=== PATIENT | female | born 1995 | race American Indian/Alaskan Native ===

== ENCOUNTER 2019-07-04 08:33 | Emergency (ER) | payer MEDICAID, OTHER ==
[2019-07-04 08:53] VITALS: BP 131/54
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
== END 2019-07-04 10:20 | disposition home or self-care (01) ==
LOC: ED 08:33
DX: S39.012A Strain of muscle, fascia and tendon of lower back, initial encounter (principal); S90.31XA Contusion of right foot, initial encounter; I10 Essential (primary) hypertension; V49.49XA Driver injured in collision with other motor vehicles in traffic accident, initial encounter; Y93.89 Activity, other specified; Y92.410 Unspecified street and highway as the place of occurrence of the external cause; Y99.8 Other external cause status

== ENCOUNTER → 2019-07-04 | Emergency (ER) | payer SELFPAY | LOC: ED 08:37 | DX: M54.9 Dorsalgia, unspecified (principal); Z53.21 Procedure and treatment not carried out due to patient leaving prior to being seen by health care provider ==

== ENCOUNTER 2020-11-25 13:07 | Observation (INO) | payer MEDICAID, OTHER ==
[~2020-11-25 13:07] MED LIST: LACTATED RINGERS 1,000 ML IV SCH
[2020-11-25] MEDS ORDERED: LACTATED RINGERS 1,000 ML IV SCH (13:45)
[2020-11-25] MEDS ORDERED: hydrALAZINE 20 MG/1 ML INJ IV PRN (13:45)
[2020-11-25 14:17] LABS: Hematocrit 36.8 % (30.3-42.9); Hemoglobin 12.2 gm/dl (10.1-14.3); Mean Corpuscular HGB Conc 33 % (30-34); Mean Corpuscular Volume 86 fl (79-97); Platelet Count 144 K/mm3 (140-440); Red Blood Count 4.26 M/mm3 (3.65-5.03); Red Cell Distribution Width 14.9 % (13.2-15.2)
[2020-11-25 14:21] LABS: Bilirubin,Urine NEG (Negative); Blood,Urine NEG (Negative); Color,Urine Yellow (Yellow); Urobilinogen,Urine < 2.0 mg/dL (<2.0)
--- NOTE | 2020-11-25 14:32 | History and Physical Report ---
History of Present Illness Date of examination: 11/25/20 Date of admission: 11/25/20 Chief complaint: pt was sent from clinic for PIH evaluation with severe proteinuria History of present illness: at 32.4wks by LMP c/w U/S. care with [facility] and sent by SONIA Browne for PIH evaluation. Pt admits to movement. Denies headache. Pt admits to intermittent RUQ abd pain and tingling sensation daily in her hands. pt has been taking her low dose aspirin with previous history of preeclampsia and term delivery at 37wks. Denies leakage of fluid, vaginal bleeding or feeling ctx. 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) Family/Genetic History: none Social history: no significant social history - Obstetrical History Expected Date of Delivery: 01/16/21 Actual Gestation: 32 Week(s) 4 Day(s) : 2 Para: 1 Number of Living Children: 1 Medications and Allergies Allergies Allergy/AdvReac Type Severity Reaction Status Date / Time No Known Allergies Allergy Verified 11/25/20 13:36 Home Medications Medication Instructions Recorded Confirmed Last Taken Type Ferrous Sulfate [Feosol 325 MG tab] 325 mg PO BID #60 tablet 08/23/15 Unknown Rx Ibuprofen [Motrin 600 MG tab] 600 mg PO Q6H #30 tablet 08/23/15 Unknown Rx Cyclobenzaprine [Flexeril 10 MG 10 mg PO TID PRN #15 tablet 07/04/19 Unknown Rx TAB] Naproxen [Naprosyn] 500 mg PO BID #20 tablet 07/04/19 Unknown Rx Active Meds: Active Medications Hydralazine HCl (Hydralazine 20 Mg/1 Ml Inj) 5 mg IV Q30MIN PRN PRN Reason: Hypertension Lactated Ringer's (Lactated Ringers) 1,000 mls @ 125 mls/hr IV DIRECT JO-ANN Lactated Ringer's (Lactated Ringers) 1,000 mls @ 50 mls/hr IV DIRECT JO-ANN Labetalol HCl (Labetalol 100 Mg Tab) 100 mg PO BID JO-ANN Review of Systems All systems: negative (intermittent RUQ pain to abdomen) - Vital Signs Vital signs: Vital Signs Pulse BP 83 135/84 11/25/20 13:28 11/25/20 13:28 Temp Pulse Resp BP Pulse Ox 100 H 145/82 99 11/25/20 14:22 11/25/20 14:13 11/25/20 14:22 - Physical Exam Breasts: Positive: deferred Cardiovascular: Regular rate Lungs: Positive: Normal air movement Abdomen: Positive: normal appearance Extremities: Positive: normal - Obstetrical FHR: category 1 (ocassional variables) Uterine Contraction Monitor Mode: External Results Result Diagrams: 11/25/20 13:55 All other labs normal. Assessment and Plan IUP at 32.4wks with PIH and BP normal at this time, thrombocytopenia noted on labs 1. Admit for PIH work up with 24hr prot, U/S for BPP, FER, EFW and placenta location 2. labetalol 100mg bid if BP>140's/90's 3. Steroids to be given 4. Consult [facility] 5. Hold aspirin for now until pt determined to be stable and not for delivery All questions encouraged and answered
[2020-11-25 14:36] LABS: Alanine Aminotransferase 10 units/L (7-56); Uric Acid 4.1 mg/dL (3.5-7.6)
[2020-11-25] MEDS ORDERED: ONDANSETRON 4 MG/2 ML INJ IV PRN (15:00)
[2020-11-25] MEDS ORDERED: SIMETHICONE 80 MG CHEW TAB PO PRN (15:00)
[2020-11-25] MEDS ORDERED: DOCUSATE SODIUM 100 MG CAP PO PRN (15:00)
--- NOTE | 2020-11-25 18:24 | Consultation ---
History of Present Illness Consult date: 11/25/20 Requesting physician: MANUEL ROY Reason for consult: pelvic pain History of present illness: HPI Ms. Hutchins is a 25 y/o now 32 4/7 weeks sent in from OB's office with elevated BP' Patient states she recently turned in 24 Hour urine prot at OB's last week and ?? "abnormal" - Please place in chart Denies COOPER's scotoma or ruq pain Mild swelling Has h/o preeclampsia with first preg on LDA BP's in house mildly elevated 141/82, 138/84 and 145/81 ( high per nurse at 160/72 - not on meds (antihypertensives) PIH labs WNL - Plts borderline at 144 ( <140 ) OB 2014 Induced vag for preeclampsia at 27 weeks m EFM - 140-150's occasional variables overall reassuring - no ctx US EFW 1886 grams - 24% BPP 8/8 FER at 14.9 cm No med No surgh Pos HSV NKA No C/D/D Past History Past Medical History: no pertinent history Past Surgical History: no surgical history [employer] History: other (Previous term preeclampsia vaginal delivery) Family/Genetic History: none - Obstetrical History : 2 Medications and Allergies Allergies Allergy/AdvReac Type Severity Reaction Status Date / Time No Known Allergies Allergy Verified 11/25/20 13:36 Home Medications Medication Instructions Recorded Confirmed Last Taken Type Ferrous Sulfate [Feosol 325 MG tab] 325 mg PO BID #60 tablet 08/23/15 Unknown Rx Ibuprofen [Motrin 600 MG tab] 600 mg PO Q6H #30 tablet 08/23/15 Unknown Rx Cyclobenzaprine [Flexeril 10 MG 10 mg PO TID PRN #15 tablet 07/04/19 Unknown Rx TAB] Naproxen [Naprosyn] 500 mg PO BID #20 tablet 07/04/19 Unknown Rx Active Meds: Active Medications Betamethasone Acet/Betameth SodPhos (Betamet Acet/Betamet Na Ph 6 Mg/Ml Inj 5 Ml Mdv) 12 mg IM Q24H JO-ANN Stop: 11/26/20 15:01 Docusate Sodium (Docusate Sodium 100 Mg Cap) 100 mg PO Q12H PRN PRN Reason: Constipation Hydralazine HCl (Hydralazine 20 Mg/1 Ml Inj) 5 mg IV Q30MIN PRN PRN Reason: Hypertension Lactated Ringer's (Lactated Ringers) 1,000 mls @ 50 mls/hr IV DIRECT JO-ANN Labetalol HCl (Labetalol 100 Mg Tab) 100 mg PO BID [facility] Multivitamins/Iron/Calcium ( [id number]-Ci Fumarate-Folic Acid Vit Tab) 1 each PO QDAY [facility] Ondansetron HCl (Ondansetron 4 Mg/2 Ml Inj) 4 mg IV Q6H PRN PRN Reason: Nausea And Vomiting Simethicone (Simethicone 80 Mg Chew Tab) 80 mg PO Q6H PRN PRN Reason: Gas pain - Vital Signs Vital signs: Vital Signs Pulse BP 83 135/84 11/25/20 13:28 11/25/20 13:28 Temp Pulse Resp BP Pulse Ox 98.6 F 101 H 20 145/84 100 11/25/20 14:31 11/25/20 18:10 11/25/20 14:31 11/25/20 18:05 11/25/20 18:10 Results Result Diagrams: 11/25/20 13:55 11/25/20 13:55 Abnormal lab results 11/25/20 Range/Units 13:55 Lactate Dehydrogenase 261 H (91-180) units/L All other labs normal. Assessment and Plan Impression: 1. [place]ahue IUP at 32 4/7 weeks 2. Preeclampsia Mild 3. H/O preeclampsia with first preg 4. HSV Recommendations 1. May have reg diet 2. Steroids for FLM 3. EFM - if categ I and BP's remain in mild range would allow discharge home 4. If Discharged weekly fu with [facility] and weekly PIH labs 5. Delivery for S/S of Preeclampsia with severe features or compromise or once reaches 37 weeks 6. Call or return to L&D for S/S of PIH or DFM's 7. Valtrex to start at 34 weeks 8. Continue LDA
--- NOTE | 2020-11-25 18:34 | Ultrasound Report ---
ULTRASOUND OBSTETRIC LIMITED ULTRASOUND BIOPHYSICAL PROFILE INDICATION / CLINICAL INFORMATION: estimated weight, placental location, BPP. ULTRASOUND OBSTETRIC INDICATION / CLINICAL INFORMATION: estimated weight, placental location, BPP. Clinical Gestational Age (GA): 32.4 weeks.days TECHNIQUE: Transabdominal. COMPARISON: None available. FINDINGS: There is a single intrauterine . Biparietal Diameter = 8.1 cm = 32.5 weeks.days Head Circumference = 30 cm = 32.6 weeks.days Abdominal Circumference = 27.1 cm = 31.1 weeks.days Femur Length = 6.4 cm = 32.6 weeks.days Average Ultrasound Age (AUA) = 32.3 weeks.days Heart Rate: 149 beats per minute. Estimated Weight in grams (if calculated): 1886 Position: transverse. Cervix: closed. Placenta: anterior grade 1 and free of the os. Amniotic Fluid Volume: normal Maternal Adnexa: No significant abnormality. BREATHING MOVEMENT = 2 GROSS BODY MOVEMENT = 2 TONE = 2 QUALITATIVE AMNIOTIC FLUID VOLUME = 2 TOTAL BIOPHYSICAL SCORE = 8/8 HEART RATE (beats per minute): 149 AMNIOTIC FLUID INDEX (cm) = 14.9 (normal = 7-24 cm) PRESENTATION: Transverse. ADDITIONAL FINDINGS: None. IMPRESSION: 1. Single viable intrauterine measuring 32.3 weeks.days average ultrasound age. 2. Biophysical Score = 8/8 3. No significant abnormality. Signer Name: Philipp Ramos MD Signed: 11/25/2020 6:29 PM Workstation Name: [id number]
[2020-11-25] MEDS: BETAMET ACET/BETAMET NA PH 6 MG/ML INJ 5 ML MDV IM SCH (20:24)
--- NOTE | 2020-11-26 07:36 | Progress Note ---
Assessment and Plan IUP at 32.5wks with mild preeclampsia; H/O HSVII 1. Appreciate APA 2. complete 2nd dose of betamethasone later this pm 3. continue labetalol 100mg bid 4. PIH precaution given 5. Will do intermittent monitoring Consider discharge home later this pm if pt remains stable and follow up in clinic Subjective Date of service: 11/26/20 Principal diagnosis: gestational HTN, mild preeclampsia Interval history: Pt c/o cold room and currently trying to get warm with a blanket. Nurse notified. pt denies headache. Pt admits to movement. Denies leakage of fluid or vaginal bleeding. Objective - Constitutional Vitals: Vital Signs - 12hr 11/25/20 11/25/20 11/25/20 19:32 19:35 20:42 Temperature Pulse Rate 86 88 104 H Respiratory Rate Blood Pressure 129/86 143/76 O2 Sat by Pulse 99 Oximetry 11/25/20 11/25/20 11/25/20 20:43 21:43 21:48 Temperature 99.1 F Pulse Rate 66 66 Respiratory 18 Rate Blood Pressure 128/80 128/80 O2 Sat by Pulse Oximetry 11/25/20 11/25/20 11/25/20 22:43 23:43 23:58 Temperature Pulse Rate 68 67 75 Respiratory Rate Blood Pressure 136/63 144/83 O2 Sat by Pulse 100 Oximetry 11/26/20 11/26/20 11/26/20 00:03 00:10 00:11 Temperature Pulse Rate 80 105 H Respiratory Rate Blood Pressure O2 Sat by Pulse 100 95 90 Oximetry 11/26/20 11/26/20 11/26/20 00:15 00:20 00:25 Temperature Pulse Rate 82 88 73 Respiratory Rate Blood Pressure O2 Sat by Pulse 100 100 99 Oximetry 11/26/20 11/26/20 11/26/20 00:30 00:35 00:40 Temperature Pulse Rate 76 76 72 Respiratory Rate Blood Pressure O2 Sat by Pulse 99 99 100 Oximetry 11/26/20 11/26/20 11/26/20 00:42 00:45 00:50 Temperature Pulse Rate 79 72 81 Respiratory Rate Blood Pressure 122/70 O2 Sat by Pulse 100 99 Oximetry 11/26/20 11/26/20 11/26/20 00:55 01:00 01:05 Temperature Pulse Rate 82 80 102 H Respiratory Rate Blood Pressure O2 Sat by Pulse 100 100 100 Oximetry 11/26/20 11/26/20 11/26/20 01:10 01:15 01:20 Temperature Pulse Rate 81 74 70 Respiratory Rate Blood Pressure O2 Sat by Pulse 99 99 99 Oximetry 11/26/20 11/26/20 11/26/20 01:25 01:30 01:35 Temperature Pulse Rate 75 101 H 70 Respiratory Rate Blood Pressure O2 Sat by Pulse 100 98 99 Oximetry 11/26/20 11/26/20 11/26/20 01:40 01:43 01:45 Temperature Pulse Rate 71 66 78 Respiratory Rate Blood Pressure 128/81 O2 Sat by Pulse 100 100 Oximetry 11/26/20 11/26/20 11/26/20 01:50 01:55 02:00 Temperature Pulse Rate 77 75 77 Respiratory Rate Blood Pressure O2 Sat by Pulse 99 99 100 Oximetry 11/26/20 11/26/20 11/26/20 02:05 02:10 02:15 Temperature Pulse Rate 70 78 83 Respiratory Rate Blood Pressure O2 Sat by Pulse 100 99 99 Oximetry 11/26/20 11/26/20 11/26/20 02:20 02:25 02:30 Temperature Pulse Rate 77 77 98 H Respiratory Rate Blood Pressure O2 Sat by Pulse 100 99 99 Oximetry 11/26/20 11/26/20 11/26/20 02:35 02:40 02:43 Temperature Pulse Rate 85 93 H 70 Respiratory Rate Blood Pressure 138/75 O2 Sat by Pulse 100 100 Oximetry 11/26/20 11/26/20 11/26/20 02:45 02:50 02:55 Temperature Pulse Rate 88 84 97 H Respiratory Rate Blood Pressure O2 Sat by Pulse 99 100 100 Oximetry 11/26/20 11/26/20 11/26/20 03:00 03:05 03:10 Temperature Pulse Rate 102 H 93 H 84 Respiratory Rate Blood Pressure O2 Sat by Pulse 100 100 99 Oximetry 11/26/20 11/26/20 11/26/20 03:15 03:20 03:25 Temperature Pulse Rate 92 H 75 84 Respiratory Rate Blood Pressure O2 Sat by Pulse 100 99 99 Oximetry 11/26/20 11/26/20 11/26/20 03:30 03:35 03:40 Temperature Pulse Rate 99 H 101 H 100 H Respiratory Rate Blood Pressure O2 Sat by Pulse 98 98 98 Oximetry 11/26/20 11/26/2011/26/21 03:42 03:43 03:45 Temperature Pulse Rate 111 H 105 H 101 H Respiratory Rate Blood Pressure 130/68 O2 Sat by Pulse 94 99 Oximetry 11/26/20 11/26/20 11/26/20 03:50 03:55 04:00 Temperature Pulse Rate 104 H 95 H 97 H Respiratory Rate Blood Pressure O2 Sat by Pulse 100 99 100 Oximetry 11/26/20 11/26/20 11/26/20 04:05 04:10 04:15 Temperature Pulse Rate 110 H 105 H 92 H Respiratory Rate Blood Pressure O2 Sat by Pulse 99 99 100 Oximetry 11/26/20 11/26/20 11/26/20 04:20 04:25 04:30 Temperature Pulse Rate 95 H 105 H 104 H Respiratory Rate Blood Pressure O2 Sat by Pulse 100 99 100 Oximetry 11/26/20 11/26/20 11/26/20 04:35 04:40 04:43 Temperature Pulse Rate 105 H 96 H 94 H Respiratory Rate Blood Pressure 175/85 O2 Sat by Pulse 100 99 Oximetry 11/26/20 11/26/20 11/26/20 04:49 04:54 04:56 Temperature Pulse Rate 40 L 91 H 89 Respiratory Rate Blood Pressure 128/62 O2 Sat by Pulse 100 99 Oximetry 11/26/20 11/26/20 11/26/20 04:59 05:04 05:09 Temperature 98.8 F Pulse Rate 75 83 85 Respiratory 18 Rate Blood Pressure O2 Sat by Pulse 100 100 99 Oximetry 11/26/20 11/26/20 11/26/20 05:14 05:19 05:24 Temperature Pulse Rate 98 H 81 101 H Respiratory Rate Blood Pressure O2 Sat by Pulse 97 100 98 Oximetry 11/26/20 11/26/20 11/26/20 05:29 05:34 05:39 Temperature Pulse Rate 95 H 105 H 92 H Respiratory Rate Blood Pressure O2 Sat by Pulse 98 98 99 Oximetry 11/26/20 11/26/20 11/26/20 05:42 05:44 05:49 Temperature Pulse Rate 96 H 92 H 100 H Respiratory Rate Blood Pressure 123/70 O2 Sat by Pulse 100 99 Oximetry 11/26/20 11/26/20 11/26/20 05:54 05:59 06:04 Temperature Pulse Rate 108 H 103 H 103 H Respiratory Rate Blood Pressure O2 Sat by Pulse 100 99 99 Oximetry 11/26/20 11/26/20 11/26/20 06:09 06:14 06:19 Temperature Pulse Rate 103 H 82 105 H Respiratory Rate Blood Pressure O2 Sat by Pulse 98 99 99 Oximetry 11/26/20 11/26/20 11/26/20 06:24 06:29 06:34 Temperature Pulse Rate 99 H 105 H 104 H Respiratory Rate Blood Pressure O2 Sat by Pulse 98 98 98 Oximetry 11/26/20 11/26/20 11/26/20 06:39 06:42 06:44 Temperature Pulse Rate 90 100 H 97 H Respiratory Rate Blood Pressure 113/59 O2 Sat by Pulse 99 97 Oximetry 11/26/20 11/26/20 11/26/20 06:49 06:54 06:59 Temperature Pulse Rate 97 H 88 96 H Respiratory Rate Blood Pressure O2 Sat by Pulse 99 100 100 Oximetry 11/26/20 11/26/20 11/26/20 07:04 07:09 07:14 Temperature Pulse Rate 80 100 H 76 Respiratory Rate Blood Pressure O2 Sat by Pulse 100 100 99 Oximetry 11/26/20 11/26/20 11/26/20 07:19 07:24 07:29 Temperature Pulse Rate 79 98 H 98 H Respiratory Rate Blood Pressure O2 Sat by Pulse 99 99 99 Oximetry General appearance: Present: no acute distress - Breasts Breasts: deferred - Cardiovascular Rhythm: regular Extremities: No edema - Psychiatric Psychiatric: cooperative - Labs CBC & Chem 7: 11/25/20 13:55 11/25/20 13:55 Labs: Abnormal lab results 11/25/20 Range/Units 13:55 Lactate Dehydrogenase 261 H (91-180) units/L Medications & Allergies - Medications Allergies/Adverse Reactions: Allergies No Known Allergies Allergy (Verified 11/25/20 13:36) Home Medications: Home Medications Medication Instructions Recorded Confirmed Last Taken Type Aspirin [Adult Aspirin] 1 tab PO DAILY 11/25/20 11/25/20 2 Days Ago History ~11/23/20 Vitamin 1 tab PO DAILY 11/25/20 11/25/20 2 Days Ago History ~11/23/20 Active Medications: Generic Name Dose Route Start Last Admin Trade Name Freq PRN Reason Stop Dose Admin Betamethasone Acet/Betameth SodPhos 12 mg 11/25/20 15:00 03/26/21 20:24 Betamet Acet/Betamet Na Ph 6 Mg/Ml Inj 5 Ml Mdv IM 11/26/20 15:01 12 mg Q24H JO-ANN Administration Docusate Sodium 100 mg 11/25/20 15:00 Docusate Sodium 100 Mg Cap PO Q12H PRN Constipation Hydralazine HCl 5 mg 11/25/20 13:45 Hydralazine 20 Mg/1 Ml Inj IV Q30MIN PRN Hypertension Lactated Ringer's 1,000 mls @ 50 mls/hr 11/25/20 13:45 Lactated Ringers IV DIRECT [facility] Labetalol HCl 100 mg 11/25/20 22:00 11/25/20 21:48 Labetalol 100 Mg Tab PO 100 mg BID [facility] Administration Multivitamins/Iron/Calcium 1 each 11/26/20 10:00 [id number] Fumarate-Folic Acid Vit Tab PO QDAY [facility] Ondansetron HCl 4 mg 11/25/20 15:00 Ondansetron 4 Mg/2 Ml Inj IV Q6H PRN Nausea And Vomiting Simethicone 80 mg 11/25/20 15:00 Simethicone 80 Mg Chew Tab PO Q6H PRN Gas pain
[2020-11-26] MEDS ORDERED: PRENATAL VIT27-FE FUMARATE-FOLIC ACID VIT TAB PO SCH (10:00)
[2020-11-26 18:50] LABS: Basophils % (Auto) 0.2 % (0.0-1.8); Hematocrit 35.1 % (30.3-42.9); Hemoglobin 11.3 gm/dl (10.1-14.3); Lymphocytes # (Auto) 1.6 K/mm3 (1.2-5.4); Lymphocytes % (Auto) 10.6 % (13.4-35.0); Mean Corpuscular HGB Conc 32 % (30-34); Mean Corpuscular Volume 87 fl (79-97); Monocytes # (Auto) 0.8 K/mm3 (0.0-0.8); Monocytes % (Auto) 5.4 % (0.0-7.3); Platelet Count 145 K/mm3 (140-440); Red Blood Count 4.05 M/mm3 (3.65-5.03); Red Cell Distribution Width 14.9 % (13.2-15.2)
[2020-11-26 21:06] VITALS: BP 132/72
[2020-11-26] MEDS: BETAMET ACET/BETAMET NA PH 6 MG/ML INJ 5 ML MDV IM SCH (21:10)
== END 2020-11-26 21:20 | disposition home or self-care (01) ==
LOC: TRG 13:07 → APU 13:08 → TRG 13:45 → LD 13:46
PROVIDERS: ADMIT Obstetrics & Gynecology; ATTEND Obstetrics & Gynecology
DX: O13.3 Gestational [pregnancy-induced] hypertension without significant proteinuria, third trimester (principal); Z20.822 Contact with and (suspected) exposure to COVID-19; O14.03 Mild to moderate pre-eclampsia, third trimester; Z3A.32 32 weeks gestation of pregnancy; Z79.82 Long term (current) use of aspirin
CPT/HCPCS: 36415; 59025; 76816; 76819; 81001; 82565; 83615; 84450; 84460; 84550; 85025; 85027; 86850; 86900; 86901; 96372; G0378; J0702; U0003

== ENCOUNTER 2021-09-01 14:08 | Emergency (ER) | payer MEDICAID ==
[2021-09-01 16:56] VITALS: BP 113/66
--- NOTE | 2021-09-01 17:12 | Emergency Department Report ---
ED General Adult HPI - General Chief complaint: Pain General Stated complaint: pain Time Seen by Provider: 09/01/21 17:07 Source: patient Mode of arrival: Ambulatory Limitations: No Limitations - History of Present Illness Initial comments: Patient reports myalgia and pain everywhere. She has been sore and achy. She has known coronavirus exposure. There has been some mild URI symptoms associated with this. Patient has no rash. There is no trauma. She states she just cannot get comfortable and is achy all over. Her muscles ache and joints ache. This is worse with movement. Symptoms have been present for 1 to 2 days. - Related Data Home Medications Medication Instructions Recorded Confirmed Last Taken Aspirin [Adult Aspirin] 1 tab PO DAILY 11/25/20 11/25/20 2 Days Ago ~11/23/20 Vitamin 1 tab PO DAILY 11/25/20 11/25/20 2 Days Ago ~11/23/20 Previous Rx's Medication Instructions Recorded Last Taken Type labetaloL [Labetalol 100mg TAB] 100 mg PO BID 30 Days #60 tablet 11/26/20 Unknown Rx Allergies Allergy/AdvReac Type Severity Reaction Status Date / Time No Known Allergies Allergy Verified 11/25/20 13:36 ED Review of Systems ROS: Stated complaint: pain Other details as noted in HPI Comment: All other systems reviewed and negative Constitutional: fever (Subjective) Eyes: denies: eye pain ENT: denies: ear pain Respiratory: see HPI Cardiovascular: denies: chest pain Endocrine: denies: unexplained weight loss Gastrointestinal: denies: abdominal pain Genitourinary: denies: dysuria Musculoskeletal: as per HPI Skin: denies: rash Neurological: denies: headache Hematological/Lymphatic: denies: easy bruising ED Past Medical Hx - Past Medical History Hx Hypertension: No Hx Congestive Heart Failure: No Hx Diabetes: No Hx Deep Vein Thrombosis: No Hx Renal Disease: No Hx Sickle Cell Disease: No Hx Seizures: No Hx Asthma: No Hx COPD: No Hx HIV: No - Social History Smoking Status: Never Smoker - Medications Home Medications: Home Medications Medication Instructions Recorded Confirmed Last Taken Type Aspirin [Adult Aspirin] 1 tab PO DAILY 11/25/20 11/25/20 2 Days Ago History ~11/23/20 Vitamin 1 tab PO DAILY 11/25/20 11/25/20 2 Days Ago History ~11/23/20 labetaloL [Labetalol 100mg TAB] 100 mg PO BID 30 Days #60 tablet 11/26/20 Unknown Rx ED Physical Exam - General Limitations: No Limitations, Other (Pulse ox noted and normal) General appearance: alert, in no apparent distress - Head Head exam: Present: atraumatic, normocephalic - Eye Eye exam: Present: normal appearance, EOMI - ENT ENT exam: Present: normal orophraynx, normal external ear exam - Neck Neck exam: Present: normal inspection. Absent: meningismus - Respiratory Respiratory exam: Present: normal lung sounds bilaterally. Absent: respiratory distress - Cardiovascular Cardiovascular Exam: Present: regular rate (102 on my exam), normal rhythm - GI/Abdominal GI/Abdominal exam: Present: soft. Absent: tenderness - Extremities Exam Extremities exam: Present: normal capillary refill - Back Exam Back exam: Absent: CVA tenderness (R), CVA tenderness (L) - Neurological Exam Neurological exam: Present: alert, oriented X3, CN II-XII intact, normal gait - Psychiatric Psychiatric exam: Present: normal affect, normal mood - Skin Skin exam: Present: warm, dry ED Course Vital Signs 09/01/21 16:53 Temperature 99.1 F Pulse Rate 134 H Respiratory 16 Rate Blood Pressure 113/66 O2 Sat by Pulse 98 Oximetry - Reevaluation(s) Reevaluation #1: 09/02/21 00:49 Patient was discharged ED Medical Decision Making - Medical Decision Making Patient presents with myalgias and tachycardia mildly. She does have symptoms that could be consistent with coronavirus or other viral infection. She does not appear to be septic or toxic. There are no adventitial breath sounds suggest pneumonia. Patient does not have a rash suggestive of cellulitis. She certainly does not appear to be ill or toxic. We have discussed outpatient testing for coronavirus or influenza. Patient is amenable with the current plan. She was treated symptomatically. Critical Care Time: No Critical care attestation.: If time is entered above; I have spent that time in minutes in the direct care of this critically ill patient, excluding procedure time. ED Disposition Clinical Impression: Myalgia Disposition: HOME / SELF CARE / HOMELESS Is pt being admited?: No Condition: Stable Instructions: Musculoskeletal Pain Additional Instructions: Use Tylenol for pain and fever. Push fluids. Consider outpatient testing for coronavirus if you are concerned. You have been provided a list of locations for this. Isolate at home until your symptoms have abated. Return for any problems or concerns. Referrals: PRIMARY CARE, [Primary Care Provider] - 3-5 Days
== END 2021-09-01 18:07 | disposition home or self-care (01) ==
LOC: ED 14:08
DX: M79.10 Myalgia, unspecified site (principal)
CPT/HCPCS: 99282

== ENCOUNTER 2021-11-24 19:36 | Inpatient (IN) | payer MEDICAID ==
[2021-11-24] MEDS ORDERED: TERBUTALINE 1 MG/1 ML INJ SUB-Q PRN (20:56)
[2021-11-24] MEDS ORDERED: LOPERAMIDE 2 MG CAP PO PRN (20:56)
[2021-11-24] MEDS ORDERED: ePHEDrine SULFATE 50 MG/1 ML INJ IV PRN (20:56)
[2021-11-24] MEDS ORDERED: fentaNYL 100 MCG/2 ML INJ IV PRN (20:56)
[2021-11-24] MEDS ORDERED: METHYLERGONOVINE MALEATE 0.2 MG/ML VIAL IM PRN (20:56)
[2021-11-24] MEDS ORDERED: LIDOCAINE (2%) 20 MG/1 ML VIAL 20 ML MDV INFILTRATI ONE (20:56)
[2021-11-24] MEDS ORDERED: miSOPROStol 200 MCG TAB PR PRN (20:56)
[2021-11-24] MEDS ORDERED: OXYTOCIN 10 UNIT/1 ML INJ IM PRN (20:56)
[2021-11-24] MEDS ORDERED: NalbUPHINE 10 MG/1 ML INJ IV PRN (20:56)
[2021-11-24] MEDS ORDERED: CARBOPROST TROMETHAMINE 250 MCG/1 ML INJ IM PRN (20:56)
[2021-11-24] MEDS ORDERED: ACETAMINOPHEN 325 MG TAB PO PRN (20:56)
[2021-11-24] MEDS ORDERED: MINERAL OIL 30 ML ORAL LIQD PO PRN (20:56)
[2021-11-24] MEDS ORDERED: OXYTOCIN DRIP 30 UNITS/500 ML BAG IV SCH ×2 (21:00→22:00)
[2021-11-24] MEDS ORDERED: valACYclovir 500 MG TAB PO SCH (21:09)
[2021-11-24] MEDS: LACTATED RINGERS 1,000 ML IV SCH ×2 (21:38→23:53)
--- NOTE | 2021-11-24 21:46 | History and Physical Report ---
History of Present Illness Date of examination: 11/24/21 Date of admission: 11/24/21 19:36 Chief complaint: Here for scheduled induction of labor. History of present illness: 26 year old female presents for scheduled induction of labor. Patient received care at [facility]. LMP 02/28/21. EDC 12/05/21. significant for the following: IUGR, genital herpes (on Valtrex suppression), closely spaced pregnancies, history of gestational hypertension with her last , mild proteinuria earlier in this (343 mg). labs are as follows: O+, antibody screen negative, rubella immune, hepatitis B surface antigen positive (possibly a typo and patient denies any known contact with hepatitis), HIV negative, RPR, HSV 2 positive, pap smear negative, gonorrhea negative, chlamydia negative, trichomonas negative, GBS negative, materniT 21 negative, 1 hour sugar test 126. Past History Past Medical History: no pertinent history Past Surgical History: no surgical history [facility] History: herpes (patient denies lesions or prodromal symptoms). denies: chlamydia, gonorrhea, hepatitis B, hepatitis C, HIV, syphilis, trichomonas Social history: no significant social history, full code. denies: smoking, prescription drug abuse, IV drug use - Obstetrical History Expected Date of Delivery: 12/05/21 Actual Gestation: 38 Week(s) 3 Day(s) : 3 Para: 2 Hx # Term Pregnancies: 2 Number of Pregnancies: 0 Spontaneous Abortions: 0 Induced : 0 Number of Living Children: 2 Medications and Allergies Allergies Allergy/AdvReac Type Severity Reaction Status Date / Time No Known Allergies Allergy Verified 11/25/20 13:36 Home Medications Medication Instructions Recorded Confirmed Last Taken Type Aspirin [Adult Aspirin] 1 tab PO DAILY 11/25/20 11/25/20 2 Days Ago History ~11/23/20 Vitamin 1 tab PO DAILY 11/25/20 11/25/20 2 Days Ago History ~11/23/20 labetaloL [Labetalol 100mg TAB] 100 mg PO BID 30 Days #60 tablet 11/26/20 Unknown Rx Valacyclovir HCl [Valtrex] 1,000 mg PO BID 30 Days #60 11/16/21 Unknown Rx Active Meds: Active Medications Acetaminophen (Acetaminophen 325 Mg Tab) 650 mg PO Q4H PRN PRN Reason: Pain, Mild (1-3) Carboprost Tromethamine (Carboprost Tromethamine 250 Mcg/1 Ml Inj) 250 mcg IM O NCE PRN PRN Reason: Uterine Bleeding Ephedrine Sulfate (Ephedrine Sulfate 50 Mg/1 Ml Inj) 10 mg IV Q2M PRN PRN Reason: Hypotension Fentanyl (Fentanyl 100 Mcg/2 Ml Inj) 100 mcg IV Q2H PRN PRN Reason: Pain,Severe (7-10) LABOR PAIN Lactated Ringer's (Lactated Ringers) 1,000 mls @ 125 mls/hr IV DIRECT JO-ANN Last Admin: 11/24/21 21:38 Dose: 125 mls/hr Oxytocin/Sodium Chloride (Pitocin/Ns 30 Unit/500ml) 30 units in 500 mls @ 40 mls/hr IV TITR JO-ANN; Protocol Oxytocin/Sodium Chloride (Pitocin/Ns 30 Unit/500ml) 30 units in 500 mls @ 2 mls/hr IV TITR JO-ANN; Protocol Loperamide HCl (Loperamide 2 Mg Cap) 2 mg PO ONCE PRN PRN Reason: give with Hemabate Methylergonovine Maleate (Methylergonovine Maleate 0.2 Mg/Ml Vial) 0.2 mg IM ONCE PRN PRN Reason: Uterine Bleeding Mineral Oil (Mineral Oil 30 Ml Oral Liqd) 30 ml PO QHS PRN PRN Reason: Constipation Misoprostol (Misoprostol 200 Mcg Tab) 800 mcg GA ONCE PRN PRN Reason: Uterine Bleeding Nalbuphine HCl (Nalbuphine 10 Mg/1 Ml Inj) 10 mg IV Q2H PRN PRN Reason: Pain, Moderate (4-6) Oxytocin (Oxytocin 10 Unit/1 Ml Inj) 10 unit IM ONCE PRN PRN Reason: Uterine Bleeding Terbutaline Sulfate (Terbutaline 1 Mg/1 Ml Inj) 0.25 mg SUB-Q ONCE PRN PRN Reason: Hyperstimulation/Hypertonicity Valacyclovir HCl (Valacyclovir 500 Mg Tab) 500 mg PO BID JO-ANN Review of Systems All systems: negative (mild contractions) - Vital Signs Vital signs: Vital Signs Pulse Ox 99 11/24/21 20:40 Temp Pulse Resp BP Pulse Ox 109 H 119/60 99 11/24/21 21:41 11/24/21 20:47 11/24/21 21:41 - Physical Exam Abdomen: Positive: soft. Negative: distention, tenderness, guarding, rigidity Genitourinary (Female): Positive: normal external genitalia, normal perenium. Negative: perineal/vulvar lesions (no lesions noted on careful exam with bright light upon admission) Vagina: Positive: normal moisture Uterus: Positive: enlarged. Negative: tender Anus/Rectum: Positive: normal perianal skin Extremities: Negative: tenderness - Obstetrical FHR: category 1 Uterine Contraction Monitor Mode: External Cervical Dilatation: 1 (Cephalic presentation confirmed) Cervical Effacement Percentage: 30 station: -3 Uterine Contraction Pattern: Irregular Uterine Contraction Intensity: Mild Results Result Diagrams: 11/24/21 21:00 All other labs normal. Assessment and Plan A: at 38 weeks, 3 days gestation. IUGR. HSV 2 positive; on Valtrex suppression. GBS negative. P: Admit. Continuous EFM. Repeat serology labs. Continue Valtrex suppression of HSV. Induction of labor. Patient consented to IOL.
[2021-11-24 22:35] LABS: Hematocrit 37.1 % (30.3-42.9); Hemoglobin 11.9 gm/dl (10.1-14.3); Mean Corpuscular HGB Conc 32 % (30-34); Mean Corpuscular Volume 87 fl (79-97); Platelet Count 151 K/mm3 (140-440); Red Blood Count 4.27 M/mm3 (3.65-5.03); Red Cell Distribution Width 14.6 % (13.2-15.2)
[2021-11-24 23:13] LABS: Hepatitis C Virus Antibody Non-Reactive (NonReactive)
[2021-11-25 00:30] LABS: Bacteria,Urine 1+ /HPF (Negative); Bilirubin,Urine NEG (Negative); Blood,Urine MOD (Negative); Color,Urine Yellow (Yellow); Mucus,Urine FEW /HPF; Urobilinogen,Urine < 2.0 mg/dL (<2.0); WBC,Urine < 1.0 /HPF (0.0-6.0)
[2021-11-25 00:44] LABS: Amphetamine Screen,Urine PRESUMPTIVE NEGATIVE; Benzodiazepines Screen,Urine PRESUMPTIVE NEGATIVE; Cannabinoid Screen,Urine PRESUMPTIVE NEGATIVE; Cocaine Screen,Urine PRESUMPTIVE NEGATIVE; Methadone Screen,Urine PRESUMPTIVE NEGATIVE; Opiate Screen,Urine PRESUMPTIVE NEGATIVE
--- NOTE | 2021-11-25 06:17 | Event Note ---
Date: 11/25/21 SVE 1./3.
[2021-11-25] MEDS: LACTATED RINGERS 1,000 ML IV SCH ×2 (07:23→14:27)
[2021-11-25] MEDS ORDERED: ePHEDrine SULFATE 50 MG/1 ML INJ IV PRN (13:32)
[2021-11-25] MEDS ORDERED: NALOXONE 2 MG/2 ML INJ IV PRN (13:32)
[2021-11-25] MEDS ORDERED: fentaNYL-BUPIV 2 MCG/ML-0.125% 200 MCG/100 ML BAG EPIDURAL SCH (14:00)
--- NOTE | 2021-11-25 14:29 | Progress Note ---
Labor Epidural - Labor Epidural Start Time: 13:57 Stop Time: 14:16 Performed by:: ORLY PHIPPS Procedure: Patient is requesting epidural for labor pain. H&P and labs reviewed. Procedure explained, questions answered, consent obtained. Patient placed in sitting position with monitors applied. Timeout performed immediately before start of procedure. Prep/drape in usual sterile fashion. Skin localized 3 mL 1% lidocaine at L[3]-L[4] interspace. 17-gauge Touhy epidural needle advanced to BRYANT with saline at [8] cm. No blood/CSF noted via epidural needle. Epidural catheter advanced to [12] cm. Negative aspiration for blood and CSF via catheter, negative response to test dose 3 ml 1.5% lidocaine w/ Epi. Sterile dressing applied followed by tape reinforcement. Patient tolerated procedure well. No immediate complications noted.
--- NOTE | 2021-11-25 16:27 | Procedure Note ---
OB Delivery Note - Delivery Date of Delivery: 11/25/21 Surgeon: MANUEL ROY Estimated blood loss: other (250cc) - Vaginal Delivery presentation: vertex Delivery position: OA Delivery induction: oxytocin Delivery augmentation: pitocin Delivery monitor: external FHT, external uterine Route of delivery: Delivery placenta: spontaneous Delivery cord: 3 umbilical vessels Episiotomy: none Delivery laceration: none Anesthesia: epidural Delivery comments: SAVD uncomplicated with female infant, normal wt. and doing well. Pt sustained no lacerations. Bimanual with firm uterus after IV pitocin. EBL 250cc - A at 1 minute: 8 at 5 minutes: 9 Infant Gender: Female
--- NOTE | 2021-11-25 18:46 | Post Anesthesia Evaluation ---
- Post Anesthesia Evaluation Patient Participated: Yes Airway Patent: Yes Stable Respiratory Function: Yes Nausea/Vomiting: No Temp > 96.8F: Yes Pain Manageable: Yes Adequeate Hydration: Yes Anesthesia Complications: No Block Receding Appropriately: Yes Patient on Ventilator: No
[2021-11-25] MEDS ORDERED: PROMETHAZINE 25 MG RECT SUPP PR PRN (19:11)
[2021-11-25] MEDS ORDERED: diphenhydrAMINE 25 MG CAP PO PRN (19:11)
[2021-11-25] MEDS ORDERED: MAGNESIUM HYDROXIDE (MOM) ORAL LIQD UDC PO PRN (19:11)
[2021-11-25] MEDS ORDERED: oxyCODONE /ACETAMINOPHEN 5-325MG TAB PO PRN (19:11)
[2021-11-25] MEDS ORDERED: PROMETHAZINE 25 MG TAB PO PRN (19:11)
[2021-11-25] MEDS ORDERED: ACETAMINOPHEN 325 MG TAB PO PRN (19:11)
[2021-11-25] MEDS ORDERED: ONDANSETRON 4 MG/2 ML INJ IV PRN (19:11)
[2021-11-25] MEDS ORDERED: WITCH HAZEL/ GLYCERIN PAD TP PRN (19:11)
[2021-11-25] MEDS ORDERED: LANOLIN/ZINC/DIMETHICONE (LANSINOH) 7 GM TP PRN (19:11)
[2021-11-25] MEDS: DOCUSATE SODIUM 100 MG CAP PO SCH (22:55)
[2021-11-25] MEDS: IBUPROFEN 800 MG TAB PO SCH (22:55)
[2021-11-25] MEDS: SENNOSIDES/DOCUSATE SODIUM 8.6/50 MG TAB PO SCH (22:55)
[2021-11-26] MEDS: IBUPROFEN 800 MG TAB PO SCH ×3 (05:04→23:31)
[2021-11-26 06:33] LABS: Hematocrit 34.8 % (30.3-42.9); Hemoglobin 11.1 gm/dl (10.1-14.3)
[2021-11-26] MEDS: DOCUSATE SODIUM 100 MG CAP PO SCH ×2 (09:54→23:31)
[2021-11-26] MEDS: PRENATAL VIT27-FE FUMARATE-FOLIC ACID VIT TAB PO SCH (09:55)
[2021-11-26] MEDS: SENNOSIDES/DOCUSATE SODIUM 8.6/50 MG TAB PO SCH (10:00)
--- NOTE | 2021-11-26 13:05 | Progress Note ---
Assessment and Plan A: day 1 S/P . P: Continue routine care. Anticipate discharge home tomorrow if patient continues to do well. Subjective - Subjective Date of service: 11/26/21 Principal diagnosis: day 1 S/P Patient reports: appetite normal, voiding normally, pain well controlled, flatus, ambulating normally, no dizzy ambulation, no nauseated [place]: doing well Objective - Vital Signs Latest vital signs: Vital Signs Temp Pulse Resp BP BP Pulse Ox Pulse Ox 11/26/21 11:03 97.9 F 91 H 18 124/67 98 11/26/21 08:10 98 11/26/21 08:00 97.9 F 85 18 120/62 97 11/26/21 04:28 98.7 F 87 20 107/62 97 11/25/21 23:52 99.0 F 91 H 20 112/69 95 11/25/21 22:30 98 11/25/21 19:30 98 11/25/21 18:48 98.5 F 105 H 18 117/68 98 11/25/21 18:19 73 125/74 87 11/25/21 18:18 87 11/25/21 18:08 76 104/55 100 11/25/21 18:05 87 87 11/25/21 18:02 67 94 11/25/21 17:59 84 89 11/25/21 17:57 87 100 11/25/21 17:53 84 109/59 11/25/21 17:52 91 H 100 11/25/21 17:51 88 88 11/25/21 17:46 82 97 11/25/21 17:41 70 100 11/25/21 17:38 80 110/53 89 11/25/21 17:36 65 100 11/25/21 17:31 68 100 11/25/21 17:26 77 100 11/25/21 17:23 81 108/59 11/25/21 17:21 68 100 11/25/21 17:19 87 11/25/21 17:16 79 98 11/25/21 17:13 71 90 11/25/21 17:11 70 99 11/25/21 17:08 64 112/55 11/25/21 17:06 65 100 11/25/21 17:01 66 97 11/25/21 17:00 71 93 11/25/21 16:56 66 99 11/25/21 16:53 72 103/53 11/25/21 16:50 81 100 11/25/21 16:45 82 100 11/25/21 16:43 80 89 11/25/21 16:39 80 100 11/25/21 16:38 96 H 112/56 11/25/21 16:35 85 85 11/25/21 16:33 86 100 11/25/21 16:29 100 H 89 11/25/21 16:28 88 99 11/25/21 16:23 92 H 115/56 100 11/25/21 16:18 95 H 100 11/25/21 16:13 103 H 100 11/25/21 16:08 108 H 100 11/25/21 16:03 122 H 100 11/25/21 15:58 105 H 100 11/25/21 15:53 99 H 100 11/25/21 15:48 91 H 100 11/25/21 15:43 92 H 100 11/25/21 15:42 97 H 119/62 11/25/21 15:38 109 H 99 11/25/21 15:33 99 H 99 11/25/21 15:32 81 88 11/25/21 15:28 100 H 97 11/25/21 15:23 90 98 11/25/21 15:18 86 100 11/25/21 15:13 75 100 11/25/21 15:12 63 100/50 11/25/21 15:08 81 100 11/25/21 15:07 92 H 114/63 11/25/21 15:03 106 H 98 11/25/21 15:02 93 H 117/62 11/25/21 14:58 93 H 100 11/25/21 14:56 85 112/58 11/25/21 14:53 94 H 98 11/25/21 14:51 101 H 114/58 11/25/21 14:48 94 H 99 11/25/21 14:46 88 112/61 11/25/21 14:43 93 H 100 11/25/21 14:41 95 H 114/64 11/25/21 14:38 98 H 100 11/25/21 14:35 101 H 114/58 11/25/21 14:33 106 H 117/60 100 11/25/21 14:31 103 H 117/57 11/25/21 14:29 89 121/60 11/25/21 14:28 95 H 100 11/25/21 14:27 92 H 119/60 11/25/21 14:25 86 114/60 11/25/21 14:23 81 114/58 100 11/25/21 14:21 75 119/56 11/25/21 14:19 79 134/70 11/25/21 14:18 103 H 100 11/25/21 14:17 83 117/56 11/25/21 14:15 73 118/56 11/25/21 14:13 103 H 96 11/25/21 14:08 77 100 11/25/21 14:03 80 99 11/25/21 14:00 85 115/54 11/25/21 13:58 104 H 100 11/25/21 13:53 99 H 99 11/25/21 13:51 34 L 89 11/25/21 13:47 74 98 11/25/21 13:41 74 100 11/25/21 13:36 78 100 11/25/21 13:31 92 H 99 11/25/21 13:26 106 H 98 11/25/21 13:21 91 H 100 11/25/21 13:18 77 110/59 11/25/21 13:16 73 99 11/25/21 13:11 104 H 100 11/25/21 13:06 95 H 99 Intake and Output 11/25/21 11/26/21 11/26/21 23:59 07:59 15:59 Intake Total 360 480 Output Total 800 Balance -440 480 Intake: Oral 480 Intake, Free Water 360 Output: Urine 800 Indwelling Catheter 300 Void 500 Other: Total, Intake Amount 240 Total, Output Amount 300 # Voids Void 1 Estimated Blood Loss 250 - Exam Cardiovascular: Present: Regular rate Lungs: Present: Clear to auscultation Abdomen: Present: normal appearance, soft. Absent: distention, tenderness, guarding, rigidity Uterus: Present: normal, firm, fundal height below umbilicus (fundus firm and midline at 1 FB below umbilicus). Absent: bogginess, tenderness Extremities: Absent: tenderness
[2021-11-27] MEDS: SENNOSIDES/DOCUSATE SODIUM 8.6/50 MG TAB PO SCH (01:39)
[2021-11-27] MEDS: IBUPROFEN 800 MG TAB PO SCH (06:03)
--- NOTE | 2021-11-27 07:16 | Progress Note ---
Assessment and Plan A: day 2 S/P . P: Discharge patient home today. Discussed with patient discharge instructions and warning signs. Advised patient to avoid intercourse, lifting, housework. Advised patient to follow up at [facility] office in 2 weeks. Patient voiced understanding of instructions. Subjective - Subjective Date of service: 11/27/21 Principal diagnosis: day 2 S/P Interval history: Patient desires discharge home today. Patient reports: appetite normal, voiding normally, pain well controlled, flatus, ambulating normally, no dizzy ambulation, no nauseated : doing well Objective - Vital Signs Latest vital signs: Vital Signs Temp Pulse Resp BP BP Pulse Ox Pulse Ox 11/27/21 06:02 98 11/27/21 04:20 98 11/27/21 01:36 98.4 F 81 20 118/68 97 11/27/21 01:35 97 11/26/21 23:30 98 11/26/21 21:32 97 11/26/21 20:10 97 11/26/21 15:27 98.7 F 94 H 18 120/75 98 11/26/21 11:03 97.9 F 91 H 18 124/67 98 11/26/21 08:10 98 11/26/21 08:00 97.9 F 85 18 120/62 97 Intake and Output 11/26/21 11/26/21 11/27/21 15:59 23:59 07:59 Intake Total 840 960 240 Balance 840 960 240 Intake: Oral 840 360 240 Intake, Free Water 600 Other: Total, Intake Amount 360 360 240 # Voids Void 1 2 1 - Exam Cardiovascular: Present: Regular rate, No murmurs Lungs: Present: Clear to auscultation Abdomen: Present: normal appearance, soft, normal bowel sounds. Absent: distention, tenderness, guarding, rigidity Uterus: Present: normal, firm, fundal height below umbilicus (fundus firm and midline at 2 FB below umbilicus). Absent: bogginess, tenderness Extremities: Absent: tenderness
--- NOTE | 2021-11-27 07:19 | Discharge Summary ---
Providers - Providers Date of Admission: 11/24/21 19:36 Date of discharge: 11/27/21 Attending physician: MANUEL ROY Primary care physician: MANUEL ROY Hospitalization Reason for admission: induction of labor Delivery: Episiotomy: none Laceration: none Other procedures: none complications: none Discharge diagnosis: IUP at term delivered baby: female Pertinent studies: Labs Hospital course: Stable hospital course Condition at discharge: Good Disposition: 01 HOME / SELF CARE / HOMELESS - Discharge Diagnoses (1) Term delivered Status: Acute Plan - Provider Discharge Summary Activity: routine, no sex for 6 weeks, no heavy lifting 4 weeks, no strenuous exercise Diet: routine Instructions: routine Additional instructions: Call your doctor immediately for: * Fever > 100.5 * Heavy vaginal bleeding ( >1 pad per hour) * Severe persistent headache * Shortness of breath * Reddened, hot, painful area to leg or breast - Follow up plan Follow up: ZOE VELASQUEZ CNM [Advanced Practice Nurse] - 14 Days
[2021-11-27 09:37] VITALS: BP 125/70
[2021-11-27] MEDS: PRENATAL VIT27-FE FUMARATE-FOLIC ACID VIT TAB PO SCH (10:08)
[2021-11-27] MEDS: DOCUSATE SODIUM 100 MG CAP PO SCH (10:08)
== END 2021-11-27 16:06 | disposition home or self-care (01) | DRG 774 ==
LOC: LD 19:36 → OB 11-25 19:00
PROVIDERS: ADMIT Obstetrics & Gynecology; ATTEND Obstetrics & Gynecology
PROC: 10E0XZZ Delivery of Products of Conception, External Approach (ICD-10-PCS; principal; 2021-11-25)
PROC: 3E0R3BZ Introduction of Anesthetic Agent into Spinal Canal, Percutaneous Approach (ICD-10-PCS; 2021-11-25)
PROC: 00HU33Z Insertion of Infusion Device into Spinal Canal, Percutaneous Approach (ICD-10-PCS; 2021-11-25)
PROC: 3E033VJ Introduction of Other Hormone into Peripheral Vein, Percutaneous Approach (ICD-10-PCS; 2021-11-25)
DX: O36.5930 Maternal care for other known or suspected poor fetal growth, third trimester, not applicable or unspecified (principal); O98.32 Other infections with a predominantly sexual mode of transmission complicating childbirth; Z37.0 Single live birth; Z3A.38 38 weeks gestation of pregnancy; A60.00 Herpesviral infection of urogenital system, unspecified
CPT/HCPCS: 36415; 80307; 81001; 85014; 85018; 85027; 86592; 86706; 86803; 86850; 86900; 86901; 87806; G0378; J3490; J2590; J7120